=== PATIENT | female | born 1955 | race Hispanic/Latino ===

== ENCOUNTER 2019-01-29 20:55 | Emergency (ER) | payer MEDICARE, OTHER ==
[~2019-01-29] VITALS: Ht 162.6 cm; Wt 104.3 kg
[~2019-01-29 20:55] MED LIST: ATARAX PO; BENTYL20 MG PO; BYSTOLIC10 MG PO; CARAFATE1 G1 PO; COLESTIPOL HCL1 GM PO; CYMBALTA60 MG PO; DEXILANT60 MG PO; DONNATAL GT; EFFEXOR XR 75MG75 MG PO; ENBREL IM; HUMIRA; HUMIRA40 MG/0.1; HYDROCODON-ACE1 EAC9 PO; LASIX20 MG PO; NORCO 10-325 T1 EACH PO; PENTASA500 MG PO; PREMARIN1.25 MG PO; PROBIOTIC COMP1 EACH PO; PROTONIX40 M2 PO; SPIRONOLACTONE25 MG PO; SULFASALAZINE500 MG PO; TRIBENZOR 40-51 EACH PO; VITAMIN D PO; VITAMIN D250000 UNIT PO; Z ENJUVIA PO; Z.0.BENICAR40 MG PO; Z.0.CELEBREX50 MG PO; Z.0.FLEXERIL5 MG PO; Z.0.LORTAB 10-5001 E PO; Z.0.SAVELLA50 MG PO; Z.0.SILENOR6 MG PO; Z.0.SYNTHROID100 MCG PO; Z.0.TRIAMTERENE-HC1 PO; Z.1.COLESTIPOL HCL1 PO
--- OUTSIDE RECORDS SUMMARY | 2019-01-29 20:59 | XMS REPORT | Clinical Summary ---
Author Author [facility] Organization [facility] Address Unknown Phone Unavailable Care Team Providers Care Housekeeper Cleaning Cooking Name Role Phone Av Logan MD PCP Allergies Comments Active Allergy Reactions Severity Noted Date TOPICAL IODINE: Burned skin off Iodine And Iodide Other (See High 05/31/2016 Containing Products Comments) Medications End Date Status Medication Sig Dispensed Refills Start Date Active sucralfate (CARAFATE) 1 Take 1 g by 0 gram tablet mouth 3 (three) times a day. Active DULoxetine (CYMBALTA) 60 Take 60 mg by 5 MG capsule mouth 2 (two) 6 times a day. Active cyanocobalamin 1000 MCG Take 1,000 0 tablet mcg by mouth daily. Active folic acid (FOLVITE) 1 MG Take 2 mg by 3 tablet mouth daily. 7 Active gabapentin (NEURONTIN) Take 1,200 mg 0 600 mg tablet by mouth 2 (two) times a day. Morning and evening Active HYDROcodone-acetaminophen Take 1 tablet 0 (NORCO) 10-325 mg per by mouth tablet every 6 (six) hours as needed for moderate pain. Active celecoxib (CeleBREX) 100 Take one to 60 capsule 2 MG capsule two capsules 8 po BID prn joint pain Active colestipol (COLESTID) 1 Take 1 tablet 180 tablet 1 gram tablet (1 g total) 8 by mouth 2 (two) times a day. 10/31/2019 Active dicyclomine (BENTYL) 20 Take 1 tablet 360 tablet 3 mg tablet (20 mg total) 8 by mouth 4 (four) times a day. 03/03/2019 Active inFLIXimab (REMICADE) 100 INFUSE 1100MG 11 each 3 mg injection (10MG PER KG 9 ) OVER 2 HOURS EVERY 4 WEEKS. Active NORMAL SALINE FLUSH USE 10 mL 4 injection DIRECTED 9 Active amLODIPine (NORVASC) 5 mg Take 5 mg by 6 tablet mouth daily. 8 Active azilsartan Take by mouth 0 med-chlorthalidone daily. (EDARBYCLOR) 40-25 mg tablet Active clonIDINE (CATAPRES) 0.1 TAKE 1 TABLET 3 MG tablet BY MOUTH 8 EVERY 6 HOURS NEEDED FOR SBP >170 Active modafinil (PROVIGIL) 100 Take 100 mg 0 MG tablet by mouth daily. Active leflunomide (ARAVA) 20 MG Take 20 mg by 0 tablet mouth daily. Active pantoprazole (PROTONIX) Take 1 tablet 60 tablet 5 40 MG EC (40 mg total) 9 tabletIndications: by mouth 2 Gastroesophageal reflux (two) times a disease without day. esophagitis Active hydrocortisone Insert into 28.35 g 2 (ANUSOL-HC) 2.5 % rectal the rectum 2 9 creamIndications: (two) times a Hemorrhoids, unspecified day. hemorrhoid type 01/15/2019 Discontinued ovpojldnng-qkuiyhzqg-ylap Take 1 tablet 0 iazid (TRIBENZOR) 40-5-25 by mouth mg tablet daily. 02/17/2018 Discontinued ergocalciferol (VITAMIN Take 50,000 0 D2) 50,000 unit capsule Units by mouth once a week. Saturday02/17/2018 Discontinued methotrexate 2.5 MG Take 5 mg by 0 tablet mouth once a week. Saturday. 01/15/2019 Discontinued ranitidine (ZANTAC) 300 Take 300 mg 0 MG tablet by mouth nightly as needed for indigestion or heartburn. 01/15/2019 Discontinued inFLIXimab (REMICADE) 100 Infuse into a 0 mg injection venous catheter. Every 4 weeks 08/29/2018 Discontinued dexlansoprazole Take 120 mg 0 (DEXILANT) 60 mg capsule by mouth daily. 05/23/2018 Discontinued colestipol (COLESTID) 1 Take 1 tablet 180 tablet 1 gram tablet (1 g total) 7 by mouth 2 (two) times a day. 02/17/2018 Discontinued sod picosulf-mag Dispense 1 1 each 0 ox-citric ac (PREPOPIK) kit. Take as 7 10 mg-3.5 gram-12 gram directed. powder in packetIndications: Crohn's disease with complication, unspecified gastrointestinal tract location (HCC) 12/01/2018 Discontinued inFLIXimab (REMICADE) 100 Infuse 1100mg 11 vial 11 mg injection (10mg/kg) 8 over 2 hours every 4 weeks 10/16/2018 Discontinued dicyclomine (BENTYL) 10 Take 1 120 capsule 11 MG capsule capsule (10 8 mg total) by mouth 4 (four) times a day before meals and nightly. 01/15/2019 Discontinued METHOTREXATE/PF (RASUVO, Inject under 0 PF, SUBQ) the skin. 06/22/2018 Discontinued ergocalciferol (VITAMIN Take 2 24 capsule 0 D2) 50,000 unit capsules 8 capsuleIndications: (100,000 Vitamin D deficiency Units total) by mouth once a week for 12 doses. Saturday03/19/2018 zolpidem (AMBIEN) 10 mg Take 1 tablet 30 tablet 0 tabletIndications: (10 mg total) 8 Primary insomnia by mouth nightly as needed for sleep for up to 30 days. 09/08/2018 VITAMIN D2 50,000 unit TAKE 2 24 capsule 0 capsuleIndications: CAPSULES 8 Vitamin D deficiency (100,000 UNITS TOTAL) BY MOUTH ONCE A WEEK FOR 12 DOSES. Saturday01/15/2019 Discontinued DEXILANT 60 mg capsule TAKE 1 60 capsule 4 CAPSULE (60 8 MG TOTAL) BY MOUTH 2 (TWO) TIMES A DAY. (08/15) 01/15/2019 Discontinued dexlansoprazole Take 2 180 capsule 0 (DEXILANT) 60 mg capsule capsules (120 8 mg total) by mouth daily. 12/09/2018 ergocalciferol (VITAMIN Take 1 24 capsule 0 D2) 50,000 unit capsule 8 capsuleIndications: (50,000 Units Vitamin D deficiency total) by mouth once a week for 12 doses. Saturday10/31/2018 Discontinued dicyclomine (BENTYL) 20 Take 1 tablet 360 tablet 3 mg tablet (20 mg total) 8 by mouth 4 (four) times a day. 01/15/2019 Discontinued hyoscyamine sulfate Take one po 60 each 3 (SYMAX DUOTAB) 0.125 bid prn 8 mg-0.25 mg (0.375 mg) abdominal tablet,ext release pain multiphase Active Problems Problem Noted Date Morbid obesity with BMI of 40.0-44.9, adult 02/17/2018 Primary insomnia 02/17/2018 Vitamin D deficiency 02/17/2018 Dehydration 12/14/2017 Generalized abdominal pain 10/18/2017 Crohn's disease with complication 05/30/2017 Intestinal infection due to enteropathogenic E. coli 05/22/2017 Last Assessment & Plan: Symptoms improved. Finished course of antibiotics. Still have 3-5 semisolid to watery BM. Likely post infectious alternation of gut microbiota. Asked to eat yogurt and take OTC probiotics. Rheumatoid arthritis involving multiple sites 05/22/2017 Last Assessment & Plan: Followed by Hvac Engineering Technician, she is currently on weekly MTX. Symptoms controlled. Healthcare maintenance 05/22/2017 Last Assessment & Plan: We will check iron profile, Quantiferone gold test, ESR/CRP with next blood draw. She had B12, FA and Zinc level check by her PCP. Will obtain records. Crohn's colitis 05/01/2017 Last Assessment & Plan: CD diagnosed in ?[address] Childers. Her presentation at that time was abdominal pain and non bloody diarrhea. She had colonoscopy during that time and was told CD. She doesn't know which part of bowel is involved. She has no history of fistula formation or abdominal surgery. She was treated with Humira for 1 year and switched to Remicade about 12/2016, currently she is on every 8 week dose. Symptoms controlled currently. She is due for her next Remicade infusion on 04/29/2017. We will check trough level prior to next infusion. Will continue current dose every 8 weeks for now. She will need repeat colonoscopy to assess diseases activity once she is fully recovered from recent EPEC gastroenteritis. Lactic acidosis 04/30/2017 Abdominal pain, acute, generalized 04/30/2017 Spinal stenosis of lumbar region 06/01/2016 Calcific tendinitis of shoulder 11/27/2013 Encounters Care Team Description Date Type Specialty Valeria Guzmán PA Hemorrhoids, unspecified hemorrhoid type (Primary Dx) 01/28/2019 Orders Only Gastroenterology Valeria Guzmán PA Crohn's disease with other complication, unspecified gastrointestinal tract location (HCC); Encounter for therapeutic drug monitoring 01/15/2019 Lab Lab Valeria Guzmán PA Crohn's disease with other complication, unspecified gastrointestinal tract location (HCC) (Primary Dx); Diarrhea, unspecified type; Fatty liver; Gastroesophageal reflux disease without esophagitis; Anxiety and depression; Personal history of immunosuppressive therapy; Encounter for therapeutic drug monitoring; Rheumatoid arthritis involving multiple sites, unspecified rheumatoid factor presence (HCC); Other specified counseling 01/15/2019 Office Visit Gastroenterology Rita Munoz MD 01/01/2019 Refill Rita Yarbrough MD 12/01/2018 Refill GastroenterGénesis Faulkner MA 10/31/2018 Refill Gastroenterology Bev Henderson LVN 10/22/2018 Orders Only Gastroenterology Bev Henderson LVN 10/16/2018 Orders Only GastroenterRita Bauer MD 10/16/2018 Telephone Gastroenterology Yanet Jc MA Vitamin D deficiency 09/22/2018 Orders Only Internal Medicine Bev Henderson LVN 08/29/2018 Orders Only Rita Yarbrough MD 2018 Refill Gastroenterology Valeria Guzmán PA Abnormal serum level of alkaline phosphatase (Primary Dx) 07/22/2018 Orders Only Gastroenterology Bev Henderson LVN IBD (inflammatory bowel disease) (Primary Dx); Vitamin B 12 deficiency; Vitamin D deficiency; Iron deficiency anemia, unspecified iron deficiency anemia type 07/10/2018 Orders Only Gastroenterology Av Logan MD Vitamin D deficiency 06/22/2018 Refill Internal Medicine Rita Munoz MD Elevated alkaline phosphatase level 06/16/2018 Hospital Radiology Encounter Bev Henderson LVN 05/23/2018 Orders Only Gastroenterology Kerry Shah NP-C 05/09/2018 Refill Gastroenterology Génesis Avalos MA Elevated alkaline phosphatase level (Primary Dx) 04/16/2018 Orders Only Gastroenterology Génesis Avalos MA Crohn's disease with other complication, unspecified gastrointestinal tract location (Primary Dx); Fatty liver; Personal history of immunosupression therapy; Abnormal serum level of alkaline phosphatase; Vitamin D deficiency 02/19/2018 Orders Only Gastroenterology Bev Henderson, CULIN[employer] ARTS INSTRUCTOR 02/18/2018 Documentation Gastroenterology Av Logan MD Primary insomnia (Primary Dx); Vitamin D deficiency; Morbid obesity with BMI of 40.0-44.9, adult 02/17/2018 Office Visit Internal Medicine Bev Henderson LVN 02/06/2018 Orders Only Gastroenterology Bev Henderson LVN 01/28/2018 Documentation Gastroenterology after 01/28/2018 Immunizations Name Dates Previously Given Next Due FLUCELVAX QUAD PF (0.5mL 10/19/2017 syringe) Pneumococcal Conjugate 10/19/2017 13-Valent Family History Medical History Relation Name Comments Diabetes Brother Prostate cancer Brother Cancer Father No Known Problems Maternal Grandfather No Known Problems Maternal Grandmother Diabetes Mother Heart disease Mother No Known Problems Other No Known Problems Paternal Grandfather No Known Problems Paternal Grandmother No Known Problems Sister Relation Name Status Comments Brother Father (Age 88) Maternal Grandfather Maternal Grandmother Mother (Age 82) Other Paternal Grandfather Paternal Grandmother Sister Social History Date Tobacco Use Types Packs/Day Years Used Never Smoker Smokeless Tobacco: Never Used Alcohol Use Drinks/Week oz/Week Comments No Sex Assigned at Date Recorded Not on file Industry Job Start Date Occupation Not on file Not on file Not on file Travel End Travel History Travel Start No recent travel history available. Last Filed Vital Signs Time Taken Vital Sign Reading 01/15/2019 11:27 AM LUMP RECEIVER Blood Pressure 117/81 01/15/2019 11:27 AM LUMP RECEIVER Pulse 74 - Temperature - - Respiratory Rate - - Oxygen Saturation - - Inhaled Oxygen - Concentration 01/15/2019 11:27 AM LUMP RECEIVER Weight 109 kg (240 lb) 01/15/2019 11:27 AM LUMP RECEIVER Height 162.6 cm (5' 4") 01/15/2019 11:27 AM LUMP RECEIVER Body Mass Index 41.2 Plan of Treatment Health Maintenance Due Date Last Done Comments CERVICAL CANCER SCREENING 1975 BREAST CANCER SCREENING 2004 COLON CANCER SCREENING 2004 SHINGLES VACCINES (#1) 2004 INFLUENZA VACCINE 07/02/2018 10/19/2017 Implants Device Identifier Shelf Expiration Date Model / Serial / Lot Implanted Type Area Manufactur er 01/30/2020 [id number] / / [id number] Port Injctbl Smart Port Ct W/ Dtchd Implantabl N/A: N/A ANGIODYNAM Plyurthn Cath 8fr - [id number] [employer] Implanted: 05/02/2017 (Quantity not Ports or on file) Accessorie s 01/01/2020 [id number] / / [id number] Port Injctbl Smart Port Ct W/ Dtchd Implantabl N/A: N/A ANGIODYNAM Plyurthn Cath 8fr - [id number] [employer] Implanted: 08/01/2017 (Quantity not Ports or on file) Accessorie s Port Procedures Comments Procedure Name Priority Date/Time Associated Diagnosis SEDIMENTATION RATE Routine 01/22/2019 Crohn's disease with 12:03 PM LUMP RECEIVER other complication, unspecified gastrointestinal tract location (HCC) Encounter for therapeutic drug monitoring C-REACTIVE PROTEIN Routine 01/22/2019 Crohn's disease with 12:03 PM LUMP RECEIVER other complication, unspecified gastrointestinal tract location (HCC) Encounter for therapeutic drug monitoring COMPREHENSIVE METABOLIC Routine 01/22/2019 Crohn's disease with PANEL 12:03 PM LUMP RECEIVER other complication, unspecified gastrointestinal tract location (HCC) Encounter for therapeutic drug monitoring CBC WITH PLATELET AND Routine 01/22/2019 Crohn's disease with DIFFERENTIAL 12:03 PM LUMP RECEIVER other complication, unspecified gastrointestinal tract location (HCC) Encounter for therapeutic drug monitoring TB TB TEST, CELL IMMUNE Routine 07/21/2018 MEASURE 8:28 AM CDT TB GOLD QUANTIFERON Routine 07/21/2018 IBD (inflammatory bowel 8:28 AM CDT disease) Vitamin B 12 deficiency Vitamin D deficiency Iron deficiency anemia, unspecified iron deficiency anemia type FOLATE LEVEL Routine 07/21/2018 IBD (inflammatory bowel 8:22 AM CDT disease) Vitamin B 12 deficiency Vitamin D deficiency Iron deficiency anemia, unspecified iron deficiency anemia type VITAMIN B12 LEVEL Routine 07/21/2018 IBD (inflammatory bowel 8:22 AM CDT disease) Vitamin B 12 deficiency Vitamin D deficiency Iron deficiency anemia, unspecified iron deficiency anemia type VITAMIN D 25 HYDROXY Routine 07/21/2018 IBD (inflammatory bowel LEVEL 8:22 AM CDT disease) Vitamin B 12 deficiency Vitamin D deficiency Iron deficiency anemia, unspecified iron deficiency anemia type TOTAL IRON BINDING Routine 07/21/2018 IBD (inflammatory bowel CAPACITY 8:22 AM CDT disease) Vitamin B 12 deficiency Vitamin D deficiency Iron deficiency anemia, unspecified iron deficiency anemia type FERRITIN LEVEL Routine 07/21/2018 IBD (inflammatory bowel 8:22 AM CDT disease) Vitamin B 12 deficiency Vitamin D deficiency Iron deficiency anemia, unspecified iron deficiency anemia type C-REACTIVE PROTEIN Routine 07/21/2018 IBD (inflammatory bowel 8:22 AM CDT disease) Vitamin B 12 deficiency Vitamin D deficiency Iron deficiency anemia, unspecified iron deficiency anemia type SEDIMENTATION RATE Routine 07/21/2018 IBD (inflammatory bowel 8:22 AM CDT disease) Vitamin B 12 deficiency Vitamin D deficiency Iron deficiency anemia, unspecified iron deficiency anemia type COMPREHENSIVE METABOLIC Routine 07/21/2018 IBD (inflammatory bowel PANEL 8:22 AM CDT disease) Vitamin B 12 deficiency Vitamin D deficiency Iron deficiency anemia, unspecified iron deficiency anemia type CBC WITH PLATELET AND Routine 07/21/2018 IBD (inflammatory bowel DIFFERENTIAL 8:22 AM CDT disease) Vitamin B 12 deficiency Vitamin D deficiency Iron deficiency anemia, unspecified iron deficiency anemia type MRI CHOLANGIOGRAM W WO Routine 06/16/2018 Elevated alkaline CONTRAST 11:22 AM CDT phosphatase level POC CREATININE Routine 06/16/2018 10:34 AM CDT VITAMIN E (ALPHA AND Routine 03/26/2018 GAMMA TOCOPHEROL) 2:42 PM CDT ALKALINE PHOSPHATASE Routine 03/26/2018 Fatty liver ISOENZYMES 2:42 PM CDT Personal history of immunosupression therapy Abnormal serum level of alkaline phosphatase CBC WITH PLATELET AND Routine 03/26/2018 Crohn's disease with DIFFERENTIAL 2:42 PM CDT other complication, unspecified gastrointestinal tract location Fatty liver Personal history of immunosupression therapy GGT Routine 03/26/2018 Fatty liver 2:42 PM CDT Personal history of immunosupression therapy Abnormal serum level of alkaline phosphatase HEPATIC FUNCTION PANEL Routine 03/26/2018 Fatty liver 2:42 PM CDT Personal history of immunosupression therapy Abnormal serum level of alkaline phosphatase SEDIMENTATION RATE Routine 03/26/2018 Fatty liver 2:42 PM CDT Personal history of immunosupression therapy Abnormal serum level of alkaline phosphatase Crohn's disease with other complication, unspecified gastrointestinal tract location C-REACTIVE PROTEIN Routine 03/26/2018 Fatty liver 2:42 PM CDT Personal history of immunosupression therapy Abnormal serum level of alkaline phosphatase Crohn's disease with other complication, unspecified gastrointestinal tract location FERRITIN LEVEL Routine 03/26/2018 Fatty liver 2:42 PM CDT Personal history of immunosupression therapy TOTAL IRON BINDING Routine 03/26/2018 Fatty liver CAPACITY 2:42 PM CDT Personal history of immunosupression therapy VITAMIN B12 AND FOLATE Routine 03/26/2018 Fatty liver 2:42 PM CDT Personal history of immunosupression therapy VITAMIN D 25 HYDROXY Routine 03/26/2018 Fatty liver LEVEL 2:42 PM CDT Personal history of immunosupression therapy Vitamin D deficiency after 01/28/2018 Results * Sedimentation rate (01/22/2019 12:03 PM LUMP RECEIVER) Only the most recent of 3 results within the time period is included. Sedimentation rate 7 0 - 40 mm/hr [facility] Specimen Blood Narrative Performed At Performed at: - [facility] [place], [id number] Consulting Psychologist: Alexander Crowe MD, Phone:[phone] Performing Organization Address [facility] [place] Phone Number [facility] * CBC with platelet and differential (01/22/2019 12:03 PM LUMP RECEIVER) Only the most recent of 3 results within the time period is included. WBC 10.5 3.4 - 10.8 x10E3/uL [facility] RBC 4.07 3.77 - 5.28 x10E6/uL [facility] HGB 12.5 11.1 - 15.9 g/dL [facility] HCT 38.0 34.0 - 46.6 % [facility] MCV 93 79 - 97 fL [facility] MCH 30.7 26.6 - 33.0 pg [facility] MCHC 32.9 31.5 - 35.7 g/dL [facility] RDW 14.0 12.3 - 15.4 % [facility] Platelet count 293 150 - 379 x10E3/uL [facility] Neutrophils 58 Not Estab. % [facility] Lymphocytes 32 Not Estab. % [facility] Monocytes 7 Not Estab. % [facility] Eosinophils 1 Not Estab. % [facility] Basophils 1 Not Estab. % [facility] Neutrophils, absolute 6.2 1.4 - 7.0 x10E3/uL [facility] Lymphocytes, absolute 3.3 (H) 0.7 - 3.1 x10E3/uL [facility] Monocytes, absolute 0.7 0.1 - 0.9 x10E3/uL [facility] Eosinophils, absolute 0.2 0.0 - 0.4 x10E3/uL [facility] Basophils, absolute 0.1 0.0 - 0.2 x10E3/uL [facility] Immature granulocytes 1 Not Estab. % [facility] Immature grans (abs) 0.1 0.0 - 0.1 x10E3/uL [facility] Specimen Blood Narrative Performed At Performed at:01 - [id number] Consulting Psychologist: Alexander Crowe MD, Phone:[phone] Performing Organization Address [facility] [place] Phone Number [facility] * C-reactive protein (01/22/2019 12:03 PM LUMP RECEIVER) Only the most recent of 3 results within the time period is included. CRP 8.9 (H) 0.0 - 4.9 mg/L [facility] Specimen Blood Narrative Performed At Performed at: - [facility] [place], [id number] Consulting Psychologist: Alexadner Crowe MD, Phone:[phone] Performing Organization Address [facility] [place] Phone Number [facility] * Comprehensive metabolic panel (01/22/2019 12:03 PM LUMP RECEIVER) Only the most recent of 2 results within the time period is included. Glucose 122 (H) 65 - 99 mg/dL [facility] BUN, whole blood 20 8 - 27 mg/dL [facility] Creatinine 0.60 0.57 - 1.00 mg/dL [facility] EGFR Non-Afr. Moz[place]ican 97 >59 mL/min/1.73 [facility] EGFR 111 >59 mL/min/1.73 [facility] BUN/creatinine ratio 33 (H) 12 - 28 [facility] Sodium 144 134 - 144 mmol/L [facility] Potassium 3.6 3.5 - 5.2 mmol/L [facility] Chloride 103 96 - 106 mmol/L [facility] CO2 23 20 - 29 mmol/L [facility] Calcium 9.5 8.7 - 10.3 mg/dL [facility] Protein 6.8 6.0 - 8.5 g/dL [facility] Albumin, S 4.1 3.6 - 4.8 g/dL [facility] Globulin, total 2.7 1.5 - 4.5 g/dL [facility] Albumin/globulin ratio 1.5 1.2 - 2.2 [facility] Total bilirubin 0.2 0.0 - 1.2 mg/dL [facility] Alkaline phosphatase 142 (H) 39 - 117 IU/L [facility] AST 15 0 - 40 IU/L [facility] ALT 21 0 - 32 IU/L [facility] Specimen Blood Narrative Performed At Performed at: - [facility] [place], [id number] Consulting Psychologist: Alexander Crowe MD, Phone:[phone] Performing Organization Address [facility] [place] Phone Number [facility] * TB GOLD Quantiferon (07/21/2018 8:28 AM CDT) Quantiferon TB gold Incubated, specimen forwarded [facility] incubated to [place], [place] for completion of the assay. Specimen Blood Narrative Performed At Performed at: - [facility] [address] [place], [id number] Consulting Psychologist: Alexander Crowe MD, Phone:[phone] Performing Organization Address [facility] [place] Phone Number [facility] * TB QuantiFERON In Tube (07/21/2018 8:28 AM CDT) Quantiferon TB gold Negative Negative [facility] Quantiferon criteria Comment [facility] Comment: To be considered positive a specimen should have a TB Ag minus Nil value greater than or equal to 0.35 IU/mL and in addition the TB Ag minus Nil value must be greater than or equal to 25% of the Nil value. There may be insufficient information in these values to differentiate between some negative and some indeterminate test values. Quantiferon TB Ag value 0.09 IU/mL [facility] Quantiferon NIL value 0.07 IU/mL [facility] Quantiferon mitogen value >10.00 IU/mL [facility] Quantiferon TB Ag minus 0.02 IU/mL [facility] NIL value Interpretation Comment [facility] Comment: The QuantiFERON TB Gold (in Tube) assay is intended for use as an aid in the diagnosis of TB infection. Negative results suggest that there is no TB infection. In patients with high suspicion of exposure, a negative test should be repeated. A positive test indicates infection with Mycobacterium tuberculosis. Among individuals without tuberculosis infection, a positive test may be due to exposure to M. kansasii, M. szulgai or M. marinum. On the Internet, go to cdc.gov/tb for further details. Narrative Performed At Performed at: - [facility] [address] [place], [id number] Consulting Psychologist: Yoshi Paredes MD, Phone:[phone] Performing Organization Address [facility] [place] Phone Number [facility] * Total iron binding capacity (07/21/2018 8:22 AM CDT) Only the most recent of 2 results within the time period is included. Iron binding capacity 461 (H) 250 - 450 ug/dL [facility] Unsaturated iron binding 364 118 - 369 ug/dL [facility] capacity Iron level 97 27 - 139 ug/dL [facility] Iron saturation 21 15 - 55 % [facility] Specimen Blood Narrative Performed At Performed at: [facility] [address] [place], [place] [id number] Consulting Psychologist: Alexander Crowe MD, Phone:[phone] Performing Organization Address [facility] [place] Phone Number [facility] * Vitamin D 25 hydroxy level (07/21/2018 8:22 AM CDT) Only the most recent of 2 results within the time period is included. Vitamin D, 25-hydroxy 33.3 30.0 - 100.0 ng/mL [facility] Comment: Vitamin D deficiency has been defined by the [place] [employer] and an Endocrine Society practice guideline as a level of serum 25-OH vitamin D less than 20 ng/mL (1,2). The Endocrine Society went on to further define vitamin D insufficiency as a level between 21 and 29 ng/mL (2). 1. IOM ([place] [employer]). 2010. Dietary reference intakes for calcium and D. [place]: The National Academies Press. 2. Stacey MF, Angel[place], Carlin-Corbin DUONG, et al. Evaluation, treatment, and prevention of vitamin D deficiency: an Endocrine Society clinical practice guideline. JCEM. 2010; 96(7):1911-30. Specimen Blood Narrative Performed At Performed at: [id number] Consulting Psychologist: Alexander Crowe MD, Phone:[phone] Performing Organization Address [facility] [place] [facility] * Folate level (07/21/2018 8:22 AM CDT) Folate 14.4 >3.0 ng/mL [facility] Comment: A serum folate concentration of less than 3.1 ng/mL is considered to represent clinical deficiency. Specimen Blood Narrative Performed At Performed at: [facility] [place], [id number] Consulting Psychologist: Alexander Crowe MD, Phone:[phone] Performing Organization Address [facility] [place] Phone Number [facility] * Ferritin level (07/21/2018 8:22 AM CDT) Only the most recent of 2 results within the time period is included. Ferritin level 61 15 - 150 ng/mL [facility] Specimen Blood Narrative Performed At Performed at:01 - [facility] [address] [place], [id number] Consulting Psychologist: Alexander Crowe MD, Phone:[phone] Performing Organization Address [facility] [place] Phone Number [facility] * Vitamin B12 level (07/21/2018 8:22 AM CDT) Vitamin B12 476 232 - 1,245 pg/mL [facility] Specimen Blood Narrative Performed At Performed at:01 - [facility] [address] [place], [id number] Consulting Psychologist: Alexander Crowe MD, Phone:[phone] Performing Organization Address [facility] [place] Phone Number [facility] * MRI CHOLANGIOGRAM W WO CONTRAST (06/16/2018 11:22 AM CDT) Narrative Performed At [facility] Procedure:MRI CHOLANGIOGRAM W WO CONTRAST REFERRING PHYSICIAN:RITA MUNOZ HISTORY:R74.8 Abnormal levels of other serum enzymes, elevated alkaline [id number] EXAM: MRI ABDOMEN (MRCP) WITHOUT AND WITH CONTRAST DATE: 06/16/2018 10:37 AM. COMPARISON: None. TECHNIQUE: Multiplanar multisequence MRCP acquisition was performed prior to and following intravenous injection of 10 cc of Gadavist. 3D oblique coronal slabs centered on the bile ducts were reconstructed. FINDINGS: The exam is suboptimal due to motion artifacts. Gallbladder: Surgically absent.. Bile ducts: The common bile duct is dilated with smooth tapering the level of the ampulla measuring approximately 1 cm in diameter. There is no evidence of gallstone.. Liver:The liver is normal in caliber, contour and signal intensity. No enhancing masses are identified. There is no evidence of intrabiliary dilatation.. Spleen: Normal. Pancreas:The pancreas is normal in caliber and signal intensity. No surrounding inflammation is seen. No pancreatic duct dilatation is identified.. Adrenal Glands:Normal. Kidneys:Scattered right renal cysts are seen with the largest lower pole cyst measuring approximately 1.6 cm. No enhancing renal lesion is seen. Evidence of hydronephrosis.. GI tract: The image portion of GI tract is unremarkable. Nodes: No enlarged lymph nodes in the upper abdomen. Fluid: No free fluid in the upper abdomen. IMPRESSION: No MRCP evidence of choledocholithiasis. Mild to moderate dilatation of common bile duct, probably due to of cholecystectomy status. No MRI evidence of acute pancreatitis. Bosniak category 1 right renal cysts. Unremarkable exam otherwise. Procedure Note Interface, Radiology Results Incoming - 06/16/2018 11:44 AM CDT Procedure:MRI CHOLANGIOGRAM W WO CONTRAST REFERRING PHYSICIAN:RITA MUNOZ HISTORY: R74.8 Abnormal levels of other serum enzymes, elevated alkaline phosphatase R74.8 EXAM: MRI ABDOMEN (MRCP) WITHOUT AND WITH CONTRAST DATE: 06/16/2018 10:37 AM. COMPARISON: None. TECHNIQUE: Multiplanar multisequence MRCP acquisition was performed prior to and following intravenous injection of 10 cc of Gadavist. 3D oblique coronal slabs centered on the bile ducts were reconstructed. FINDINGS: The exam is suboptimal due to motion artifacts. Gallbladder: Surgically absent.. Bile ducts: The common bile duct is dilated with smooth tapering the level of the ampulla measuring approximately 1 cm in diameter. There is no evidence of gallstone.. Liver: The liver is normal in caliber, contour and signal intensity. No enhancing masses are identified. There is no evidence of intrabiliary dilatation.. Spleen: Normal. Pancreas: The pancreas is normal in caliber and signal intensity. No surrounding inflammation is seen. No pancreatic duct dilatation is identified.. Adrenal Glands: Normal. Kidneys: Scattered right renal cysts are seen with the largest lower pole cyst measuring approximately 1.6 cm. No enhancing renal lesion is seen. Evidence of hydronephrosis.. GI tract: The image portion of GI tract is unremarkable. Nodes: No enlarged lymph nodes in the upper abdomen. Fluid: No free fluid in the upper abdomen. IMPRESSION: No MRCP evidence of choledocholithiasis. Mild to moderate dilatation of common bile duct, probably due to of cholecystectomy status. No MRI evidence of acute pancreatitis. Bosniak category 1 right renal cysts. Unremarkable exam otherwise. Performing Organization Address City/State/Zipcode Phone Number [facility] [address] [place] [address] * POC creatinine (06/16/2018 10:34 AM CDT) POC creatinine 0.6 0.5 - 0.9 mg/dl [facility] [place] [facility]IC[facility] Specimen Blood Performing Organization Address City/[facility] Phone Number [facility] [place] [facility] [address] [place] [address] PATHOLOGY AND GENOMIC MEDICINE * Vitamin E (Alpha and Gamma Tocopherol) (03/26/2018 2:42 PM CDT) Vitamin E level 10.5 9.0 - 29.0 mg/L [facility] Vitamin E level 2.6 0.5 - 4.9 mg/L [facility] Comment: Reference intervals for alpha and gamma-tocopherol determined from National Health and Nutrition Examination Survey, 7137-7497. Individuals with alpha-tocopherol levels less than 5.0 mg/L are considered vitamin E deficient. This test was developed and its performance characteristics determined by [facility]. It has not been cleared or approved by the Food and Drug Administration. Narrative Performed At Performed at: [id number] Consulting Psychologist: Yoshi Paredes MD, Phone:[phone] Performing Organization Address [facility] [place] Number [facility] * Vitamin B12 and Folate (03/26/2018 2:42 PM CDT) Vitamin B12 602 232 - 1,245 pg/mL [facility] Folate >19.9 >3.0 ng/mL [facility] Comment: A serum folate concentration of less than 3.1 ng/mL is considered to represent clinical deficiency. Specimen Blood Narrative Performed At [facility] [address] [place], [id number] Consulting Psychologist: Alexander Crowe MD, Phone:[phone] Performing Organization Address [facility] [place] Number [facility] * Alkaline phosphatase isoenzymes (03/26/2018 2:42 PM CDT) Liver fraction: 44 18 - 85 % [facility] 02 Bone Fraction: 47 14 - 68 % [facility] 02 Intestinal frac.: 9 0 - 18 % [facility] 02 Specimen Blood Narrative Performed At Performed at: [id number] Consulting Psychologist: Yoshi Paredes MD, Phone:[phone] Performing Organization Address [facility] Phone Number [facility] * GGT (03/26/2018 2:42 PM CDT) GGT 32 0 - 60 IU/L [facility] Specimen Blood Narrative Performed At Performed at:01 - [facility] [address] [place], [id number] Consulting Psychologist: Alexander Crowe MD, Phone:[phone] Performing Organization Address City[facility] Phone Number [facility] * Hepatic function panel (03/26/2018 2:42 PM CDT) Protein 7.2 6.0 - 8.5 g/dL [facility] Albumin, S 4.4 3.6 - 4.8 g/dL [facility] Total bilirubin 0.3 0.0 - 1.2 mg/dL [facility] Bilirubin direct 0.10 0.00 - 0.40 mg/dL [facility] Alkaline phosphatase 145 (H) 39 - 117 IU/L [facility] AST 18 0 - 40 IU/L [facility] ALT 19 0 - 32 IU/L [facility] Specimen Blood Narrative Performed At Performed at:01 - [facility] [address] [place], [id number] Consulting Psychologist: Alexander Crowe MD, Phone:[phone] Performing Organization Address [place]/[facility] [place] Phone Number [facility] after 01/28/2018 Insurance Payer Benefit Subscriber ID Type Phone Address Plan / Group UHC MEDICARE UHC xxxxxxxxx HMO MEDICARE COMPLETE Advance Directives Patient has advance care planning documents, and code status on file. For more i nformation, please contact: [facility] [address] [place] [address] Date Inactivated Comments Code Status Date Activated 12/17/2017 4:19 PM Full Code 12/14/2017 11:37 PM Code Status decision reached by: Patient
[2019-01-29 21:24] LABS: BASOPHILS # (AUTO) 0.1 (0.0-0.1); BASOPHILS % 0.6 % (0.0-1.0); EOSINOPHILS # (AUTO) 0.1 (0.0-0.4); EOSINOPHILS % 0.6 % (0.0-6.0); HEMATOCRIT 36.9 % (34.2-44.1); HEMOGLOBIN 12.4 g/dL (12.0-16.0); LYMPHOCYTES # (AUTO) 2.9 (1.0-3.2); LYMPHOCYTES % 17.9 % (18.0-39.1); MEAN CORPUSCULAR HEMOGLOBIN 31.1 pg (28-32); MEAN CORPUSCULAR HGB CONC 33.6 g/dL (31-35); MEAN CORPUSCULAR VOLUME 92.5 fL (81-99); NEUTROPHILS # (AUTO) 11.9 (2.1-6.9); NEUTROPHILS % 74.2 % (38.7-80.0); PLATELET COUNT 312 x10e3/uL (140-360); RED BLOOD COUNT 3.99 x10e6/uL (3.6-5.1); RED CELL DISTRIBUTION WIDTH 13.6 % (11.7-14.4)
[2019-01-29 21:45] LABS: ALANINE AMINOTRANSFERASE 64 IU/L (0-55); ALBUMIN 3.6 g/dL (3.5-5.0); ALKALINE PHOSPHATASE 136 IU/L (40-150); ANION GAP 16.8 mmol/L (8-16); BLOOD UREA NITROGEN 22 mg/dL (7-26); BUN/CREATININE RATIO 28 (6-25); CARBON DIOXIDE 22 mmol/L (22-29); CHLORIDE 103 mmol/L (98-107); EST GLOMERULAR FILTRATION RATE > 60 ML/MIN (60-); GLUCOSE 119 mg/dL (74-118); POTASSIUM 3.8 mmol/L (3.5-5.1); SODIUM 138 mmol/L (136-145)
[2019-01-29] MEDS ORDERED: MODAFINIL200 MG (22:36)
[2019-01-29] MEDS ORDERED: DICYCLOMINE HCL20 MG (22:36)
[2019-01-29] MEDS ORDERED: GABAPENTIN600 MG (22:36)
[2019-01-29] MEDS ORDERED: REMICADE100 MG/VIA IV (22:36)
[2019-01-29] MEDS ORDERED: EDARBYCLOR 40-1 EAC1 (22:36)
[2019-01-29] MEDS ORDERED: TYLENOL # 31 EA (22:36)
[2019-01-29] MEDS ORDERED: CYMBALTA30 MG (22:36)
[2019-01-29] MEDS ORDERED: CLONIDINE HCL0.1 MG (22:36)
[2019-01-29] MEDS ORDERED: PANTOPRAZOLE SO40 MG (22:36)
[2019-01-29] MEDS ORDERED: MODAFINIL100 MG (22:36)
[2019-01-29] MEDS ORDERED: LEFLUNOMIDE20 MG (22:36)
--- NOTE | 2019-01-29 22:36 | NUR ---
UPDATED HOME MED LIST OBTAINED FROM FAMILY AND ENTERED INTO COMPUTER
--- NOTE | 2019-01-29 23:13 | NUR ---
received report from diogo noel
[2019-01-29] MEDS ORDERED: DIATRIZOATE MEGL/DIATRIZOA SOD 30 ML BTL PO ONE (23:52)
[2019-01-29] MEDS ORDERED: SODIUM CHLORIDE 0.9% 50ML 50 ML ONE (23:52)
[2019-01-29] MEDS ORDERED: IOPAMIDOL 370 MG/ML 200 ML INFUS..BTL INJ ONE (23:52)
--- NOTE | 2019-01-30 00:10 | NUR ---
iv in lacf infiltrated with ns, dc'd iv, restarted racf x 2 sticks with us guidance, tolerated well, drinking po contrast
--- NOTE | 2019-01-30 01:36 | Diagnostic Imaging Report ---
CT Abdomen And Pelvis with Intravenous Contrast INDICATION: Crohn's disease, diarrhea, weakness, abdominal pain ^abd pain ^[id number] ^[id number] TECHNIQUE: Thin collimation axial images obtained from the diaphragm to the level of the pubic symphysis following the uneventful administration of 100 cc of low osmolar, nonionic intravenous contrast. Oral contrast was also administered. Dose reduction techniques used: Automated exposure control, adjustment of the mAs and/or kVp according to patient size, standardized low-dose protocol, and/or iterative reconstruction technique. RADIATION DOSE: Total DLP: 827.5 mGy*cm Estimated effective dose: (DLP x 0.015 x size factor) mSv CTDIvol has been reviewed. It is below the limits set by the Radiation Protocol Committee (RPC). COMPARISON: Report of CT abdomen/pelvis 09/14/2012. CT abdomen/pelvis 07/17/2010 ABDOMEN FINDINGS: Lung Bases: Clear. The visualized portions of the mediastinum are normal.. Liver: Decreased attenuation and measures 17 cm in length. No evidence for mass. Gallbladder: Absent. No biliary ductal dilatation. Pancreas: Normal attenuation without mass or ductal dilatation. Spleen: Normal in size. No evidence of mass.. Adrenal Glands: No evidence for mass. Kidneys: Right: Normal enhancement. Lower pole cyst measures 1.8 cm. No hydronephrosis. Left: Normal enhancement. No soft tissue mass. No hydronephrosis. Lymph Nodes: No enlarged abdominal or retroperitoneal lymph nodes. Aorta: Normal in diameter with diffuse calcifications PELVIS FINDINGS: Bowel: Stomach: Postoperative changes of the GE junction suggestive of Denis fundoplication. This is stable. The stomach contains enteric contrast and is not dilated. No mural thickening or surrounding inflammation. Small Bowel: Contains enteric contrast. A centrally located small bowel loop measures 3 cm in diameter without surrounding inflammation or mural thickening. Distal to this, there is enteric contrast in normal caliber small bowel loops. The terminal ileum is normal in appearance. Large Bowel: Contains a small amount of enteric contrast in the cecum. No dilatation. Mild burden of diverticulosis coli. No associated inflammation. Appendix: Not visualized and may be absent or collapsed. Bladder: Well distended and is normal. The uterus is absent. There are no adnexal masses. Peritoneum/retroperitoneum: No free fluid or fluid collection. No fistulas are appreciated. Bones: Mild degenerative changes of the spine. No focal osseous lesions. Soft tissues: Fat-containing hernia in the linea alba to the left of midline above the umbilicus has an aperture of 1.6 cm. The hernia itself measures 6.2 cm in diameter. No fluid in the hernia sac. A 10 mm knuckle of the transverse colon lies near the hernia neck (sagittal image 74). No conclusive evidence of associated inflammation. IMPRESSION: 1. No evidence of bowel inflammation to suggest active Crohn's flare. 2. Mild nonspecific distention of central small bowel loops without dilatation or impediment of passage of contrast into the distal small bowel. No secondary signs of inflammation at this level. 3. Ventral abdominal wall hernia containing a knuckle of transverse colon without associated inflammation. 4. Diverticulosis coli. No evidence of diverticulitis. Nonvisualization of the appendix. 4. Steatosis and hepatomegaly. 5. Postoperative changes from hiatal hernia repair, cholecystectomy, and hysterectomy. Signed by: Dr. Olga Graham MD on 01/30/2019 1:32 AM
[2019-01-30] MEDS ORDERED: ZOFRAN4 MG SL (02:24)
[2019-01-30] MEDS ORDERED: FLAGYL500 MG PO (02:24)
[2019-01-30] MEDS ORDERED: CIPRO500 MG PO (02:24)
[2019-01-30] MEDS ORDERED: REGLAN10 MG PO (02:24)
== END 2019-01-30 03:02 | disposition home or self-care (01) ==
LOC: ER 20:55
DX: R19.7 Diarrhea, unspecified (principal); K50.00 Crohn's disease of small intestine without complications
CPT/HCPCS: 36415; 74177; 80053; 85025; 99283; Q9967

== ENCOUNTER 2019-02-21 12:15 | Emergency (ER) | payer MEDICARE ==
[~2019-02-21] VITALS: Ht 162.6 cm; Wt 104.3 kg
[~2019-02-21 12:15] MED LIST changes: +CIPRO500 MG PO; +CLONIDINE HCL0.1 MG; +CYMBALTA30 MG; +DICYCLOMINE HCL20 MG; +EDARBYCLOR 40-1 EAC1; +FLAGYL500 MG PO; +GABAPENTIN600 MG; +LEFLUNOMIDE20 MG; +MODAFINIL100 MG; +MODAFINIL200 MG; +PANTOPRAZOLE SO40 MG; +REGLAN10 MG PO; +REMICADE100 MG/VIA IV; +TYLENOL # 31 EA; +ZOFRAN4 MG SL
--- OUTSIDE RECORDS SUMMARY | 2019-02-21 12:19 | XMS REPORT | Clinical Summary ---
Author Author [facility] Organization [facility] Address Unknown Phone Unavailable Care Team Providers Care Children'S Tutor Name Role Phone Av Logan MD PCP [...] mg by 0 tablet mouth daily. Active hydrocortisone Insert into 28.35 g 2 (ANUSOL-HC) 2.5 % rectal the rectum 2 9 creamIndications: (two) times a Hemorrhoids, unspecified day. hemorrhoid type Active pantoprazole (PROTONIX) Take 1 tablet 180 tablet 3 40 MG EC (40 mg total) 9 tabletIndications: by mouth 2 Gastroesophageal reflux (two) times a disease without day. esophagitis Active HEParin, porcine, PF, 100 USE 10 Syringe 10 unit/mL syringe DIRECTED 9 01/15/2019 Discontinued wikrfexrpk-wmxbxyltx-uspv Take 1 tablet 0 iazid (TRIBENZOR) 40-5-25 by mouth mg tablet daily. 01/15/2019 Discontinued ranitidine (ZANTAC) 300 Take 300 [...] by mouth 2 (two) times a day. 12/01/2018 Discontinued inFLIXimab (REMICADE) 100 Infuse 1100mg [...] (0.375 mg) abdominal tablet,ext release pain multiphase 02/13/2019 Discontinued pantoprazole (PROTONIX) Take 1 tablet 60 tablet 5 40 MG EC (40 mg total) 9 tabletIndications: by mouth 2 Gastroesophageal reflux (two) times a disease without day. esophagitis Active Problems Problem Noted Date Morbid obesity [...] 05/22/2017 Last Assessment & Plan: Followed by Regional Environmental Manager, she is currently on weekly MTX. Symptoms [...] Encounters Care Team Description Date Type Specialty Francine Munoz MD 02/16/2019 Refill Gastroenterology Valeria Guzmán PA Gastroesophageal reflux disease without esophagitis 02/13/2019 Orders Only Gastroenterology Génesis Avalos MA Follow-up (Faxed over recent office visit notes and recent ER records to ) 02/06/2019 Documentation Gastroenterology Queenie Hawkins RN 01/30/2019 Telephone Gastroenterology Valeria Guzmán PA Hemorrhoids, unspecified hemorrhoid type [...] Other specified counseling 01/15/2019 Office Visit Gastroenterology Francine Munoz MD 01/01/2019 Refill GastroenterFrancine Bauer MD 12/01/2018 Refill Gastroenterology Génesis Avalos MA 10/31/2018 Refill Gastroenterology Bev Henderson LVN 10/22/2018 Orders Only Gastroenterology Bev Henderson LVN 10/16/2018 Orders Only Francine Yarbrough MD 10/16/2018 Telephone Gastroenterology Yanet Jc MA Vitamin D deficiency 09/22/2018 Orders Only Internal Medicine Bev Henderson LVN 08/29/2018 Orders Only Francine Yarbrough MD 2018 Refill Gastroenterology Valeria Guzmán PA Abnormal serum level of alkaline phosphatase (Primary Dx) 07/22/2018 Orders Only Gastroenterology Bev Henderson LVN IBD (inflammatory bowel disease) (Primary Dx); Vitamin B 12 deficiency; Vitamin D deficiency; Iron deficiency anemia, unspecified iron deficiency anemia type 07/10/2018 Orders Only GastroenterAv Chester MD Vitamin D deficiency 06/22/2018 Refill Internal Medicine Francine Munoz MD Elevated alkaline phosphatase level 06/16/2018 Hospital Radiology Encounter Bev Henderson LVN 05/23/2018 Orders Only Gastroenterology Kerry Shah NP-C 05/09/2018 Refill Gastroenterology Génesis Avalos MA Elevated alkaline phosphatase level (Primary Dx) 04/16/2018 Orders Only Gastroenterology after 02/20/2018 Immunizations Name Dates Previously Given Next Due [...] Taken Vital Sign Reading 01/15/2019 11:27 AM PANEL SAW OPERATOR Blood Pressure 117/81 01/15/2019 11:27 AM PANEL SAW OPERATOR Pulse 74 - Temperature - - Respiratory Rate - - Oxygen Saturation - - Inhaled Oxygen - Concentration 01/15/2019 11:27 AM PANEL SAW OPERATOR Weight 109 kg (240 lb) 01/15/2019 11:27 AM PANEL SAW OPERATOR Height 162.6 cm (5' 4") 01/15/2019 11:27 AM PANEL SAW OPERATOR Body Mass Index 41.2 Plan of Treatment Health Maintenance Due Date Last Done Comments CERVICAL CANCER SCREENING 1975 BREAST CANCER SCREENING 2004 COLON CANCER SCREENING 2004 SHINGLES VACCINES (#1) 2004 INFLUENZA VACCINE 07/02/2018 10/19/2017 Implants Device Identifier Shelf Expiration Date Model / Serial / Lot Implanted Type Area Manufactur er 01/30/2020 [id number] / / [id number] Port Injctbl Smart Port Ct W/ Dtchd Implantabl N/A: N/A ANGIODYNAM Plyurthn Cath 8fr - [id number] e [employer] Implanted: 05/02/2017 (Quantity not Ports or on file) Accessorie s 01/01/2020 [id number] / / [id number] Port Injctbl Smart Port Ct W/ Dtchd Implantabl N/A: N/A ANGIODYNAM Plyurthn Cath 8fr - [id number] [employer] Implanted: 08/01/2017 (Quantity not Ports or on file) Accessorie s Port Procedures Comments Procedure Name Priority Date/Time Associated Diagnosis SEDIMENTATION RATE Routine 01/22/2019 Crohn's disease with 12:03 PM PANEL SAW OPERATOR other complication, unspecified gastrointestinal tract location (HCC) Encounter for therapeutic drug monitoring C-REACTIVE PROTEIN Routine 01/22/2019 Crohn's disease with 12:03 PM PANEL SAW OPERATOR other complication, unspecified gastrointestinal tract location (HCC) Encounter for therapeutic drug monitoring COMPREHENSIVE METABOLIC Routine 01/22/2019 Crohn's disease with PANEL 12:03 PM PANEL SAW OPERATOR other complication, unspecified gastrointestinal tract location (HCC) Encounter for therapeutic drug monitoring CBC WITH PLATELET AND Routine 01/22/2019 Crohn's disease with DIFFERENTIAL 12:03 PM PANEL SAW OPERATOR other complication, unspecified gastrointestinal tract location (HCC) [...] of immunosupression therapy Vitamin D deficiency after 02/20/2018 Results * Sedimentation rate (01/22/2019 12:03 PM PANEL SAW OPERATOR) Only the most recent of 3 results within the time period is included. Sedimentation rate 7 0 - 40 mm/hr [facility] Specimen Blood Narrative Performed At Performed at:01 - [facility] [address] [place], [id number] Vice President Regulatory: Alexander Crowe MD, Phone:[phone] Performing Organization Address City/State/Zipcode Phone Number [facility] * CBC with platelet and differential (01/22/2019 12:03 PM PANEL SAW OPERATOR) Only the most recent of 3 results [...] Specimen Blood Narrative Performed At Performed at: [id number] Vice President Regulatory: Alexander Crowe MD, Phone:[phone] Performing Organization Address [facility] Phone Number [facility] * C-reactive protein (01/22/2019 12:03 PM PANEL SAW OPERATOR) Only the most recent of 3 results within the time period is included. CRP 8.9 (H) 0.0 - 4.9 mg/L [facility] Specimen Blood Narrative Performed At Performed at:[address] [place], [place] [id number] Vice President Regulatory: Alexander Crowe MD, Phone:[phone] Performing Organization Address [facility] Phone Number [facility] * Comprehensive metabolic panel (01/22/2019 12:03 PM PANEL SAW OPERATOR) Only the most recent of 2 results within the time period is included. Glucose 122 (H) 65 - 99 mg/dL [facility] BUN, whole blood 20 8 - 27 mg/dL [facility] Creatinine 0.60 0.57 - 1.00 mg/dL [facility] EGFR Non-Afr. [place] 97 >59 mL/min/1.73 [facility] EGFR 111 >59 [...] [facility] Specimen Blood Narrative Performed At Performed at:[address] [place], [place] [id number] Vice President Regulatory: Alexander Crowe MD, Phone:[phone] Performing Organization Address [facility] Phone Number [facility] * TB GOLD Quantiferon (07/21/2018 8:28 AM CDT) Quantiferon TB gold Incubated, specimen forwarded [facility] incubated to [place], [place] for completion of the assay. Specimen Blood Narrative Performed At Performed at:[address] [place], [place] [id number] Vice President Regulatory: Alexander Crowe MD, Phone:[phone] Performing Organization Address [facility] Phone Number [facility] * TB QuantiFERON In Tube (07/21/2018 8:28 AM CDT) Quantiferon TB gold Negative Negative [facility] 02 Quantiferon criteria Comment [facility] 02 Comment: To be considered positive a [...] values. Quantiferon TB Ag value 0.09 IU/mL [facility] 02 Quantiferon NIL value 0.07 IU/mL [facility] 02 Quantiferon mitogen value >10.00 IU/mL [facility] 02 Quantiferon TB Ag minus 0.02 IU/mL [facility] 02 NIL value Interpretation Comment [facility] 02 Comment: The QuantiFERON TB Gold (in [...] further details. Narrative Performed At Performed at: [facility] [address] [place], [id number] Vice President Regulatory: Yoshi Paredes MD, Phone:[phone] Performing Organization Address [facility] Phone Number [facility] 02 * Total iron binding capacity (07/21/2018 [...] Specimen Blood Narrative Performed At [facility]: [facility] [address], [id number] Vice President Regulatory: Alexander Crowe MD, Phone:[phone] Performing Organization Address City/[facility] Phone Number [facility] * Vitamin D 25 hydroxy level (07/21/2018 8:22 AM CDT) Only the most recent of 2 results within the time period is included. Vitamin D, 25-hydroxy 33.3 30.0 - 100.0 ng/mL [facility] Comment: Vitamin D deficiency has been defined by the Freedom of Medicine and an Endocrine Society practice guideline as a level of serum 25-OH vitamin D less than 20 ng/mL (1,2). The Endocrine Society went on to further define vitamin D insufficiency as a level between 21 and 29 ng/mL (2). 1. IOM (Freedom of Medicine). 2010. Dietary reference intakes for calcium and D. [place]: The National Academies Press. 2. Stacey MF, Angelina [place], Sudheer DUONG, et al. Evaluation, treatment, and prevention of vitamin D deficiency: an Endocrine Society clinical practice guideline. JCEM. 2010; 96(7):1911-30. Specimen Blood Narrative Performed At Performed at: [id number] Vice President Regulatory: Alexander Crowe MD, Phone:[phone] Performing Organization Address [facility] Phone Number [facility] * Folate level (07/21/2018 8:22 AM CDT) Folate 14.4 >3.0 ng/mL [facility] Comment: A serum folate concentration of less than 3.1 ng/mL is considered to represent clinical deficiency. Specimen Blood Narrative Performed At Performed at: [id number] Vice President Regulatory: Alexander Crowe MD, Phone:[phone] Performing Organization Address [facility] Phone Number [facility] * Ferritin level (07/21/2018 8:22 AM CDT) Only the most recent of 2 results within the time period is included. Ferritin level 61 15 - 150 ng/mL [facility] Specimen Blood Narrative Performed At Performed at:[facility], [id number] Vice President Regulatory: Alexander Crowe MD, Phone:[phone] Performing Organization Address [facility] Phone Number [facility] * Vitamin B12 level (07/21/2018 8:22 AM CDT) Vitamin B12 476 232 - 1,245 pg/mL [facility] Specimen Blood Narrative Performed At Performed at: [facility] [address] [facility], [id number] Vice President Regulatory: Alexander Crowe MD, Phone:[phone] Performing Organization Address City/State/Zipcode Phone Number [facility] * MRI CHOLANGIOGRAM W WO CONTRAST (06/16/2018 11:22 AM CDT) Narrative Performed At [facility] Procedure:MRI CHOLANGIOGRAM W WO CONTRAST REFERRING PHYSICIAN:FRANCINE MUNOZ HISTORY:R74.8 Abnormal levels of other serum enzymes, elevated alkaline [id number] EXAM: MRI ABDOMEN ([facility]) WITHOUT AND WITH [...] CDT Procedure:MRI CHOLANGIOGRAM W WO CONTRAST REFERRING PHYSICIAN:FRANCINE MUNOZ HISTORY: R74.8 Abnormal levels of other [...] otherwise. Performing Organization Address City/State/Zipcode Phone Number [facility] [address] [place] [address] * POC creatinine (06/16/2018 10:34 AM CDT) POC creatinine 0.6 0.5 - 0.9 mg/dl [facility] [place] [facility]OLOGY AND GENOMIC MEDICINE Specimen Blood Performing Organization Address City/State/Zipcode Phone Number [facility] [address] [place] [address]. [place] [address] PATHOLOGY AND GENOMIC MEDICINE * Vitamin E (Alpha and Gamma Tocopherol) (03/26/2018 2:42 PM CDT) Vitamin E level 10.5 9.0 - 29.0 mg/L [facility] 02 Vitamin E level 2.6 0.5 - 4.9 mg/L [facility] 02 Comment: Reference intervals for alpha and gamma-tocopherol determined from National Health and Nutrition Examination Survey, 3359-6892. Individuals with alpha-tocopherol levels less than 5.0 mg/L are considered vitamin E deficient. This test was developed and its performance characteristics determined by [facility]. It has not been cleared or approved by the Food and Drug Administration. Narrative Performed At Performed at: [id number] Vice President Regulatory: Yoshi Paredes MD, Phone:[phone] Performing Organization Address [facility] Phone Number [facility] 02 * Vitamin B12 and Folate (03/26/2018 2:42 PM CDT) Vitamin B12 602 232 - 1,245 pg/mL [facility] Folate >19.9 >3.0 ng/mL [facility] Comment: A serum folate concentration of less than 3.1 ng/mL is considered to represent clinical deficiency. Specimen Blood Narrative Performed At Performed at: [id number] Vice President Regulatory: Alexander Crowe MD, Phone:[phone] Performing Organization Address [facility] Phone Number [facility] * Alkaline phosphatase isoenzymes (03/26/2018 2:42 PM CDT) Liver fraction: 44 18 - 85 % [facility] 02 Bone Fraction: 47 14 - 68 % [facility] 02 Intestinal frac.: 9 0 - 18 % [facility] 02 Specimen Blood Narrative Performed At Performed at: [id number] Vice President Regulatory: Yoshi Paredes MD, Phone:[phone] Performing Organization Address [facility] Phone Number [facility] 02 * GGT (03/26/2018 2:42 PM CDT) GGT 32 0 - 60 IU/L [facility] Specimen Blood Narrative Performed At Performed at: [id number] Vice President Regulatory: Alexander Crowe MD, Phone:[phone] Performing Organization Address City/State/Zipcode Phone Number [facility] * Hepatic function panel [...] Narrative Performed At Performed at:01 - [facility] [address], [id number] Vice President Regulatory: Alexander Crowe MD, Phone:[phone] Performing Organization Address City/State/Zipcode Phone Number [facility] after 02/20/2018 Insurance Payer Benefit Subscriber ID Type Phone Address Plan / Group UHC MEDICARE UHC xxxxxxxxx O MEDICARE HMO/PPO Advance Directives Patient has advance care planning documents, and code status on file. For more i nformation, please contact: [facility] [address] [place] [address] Date Inactivated Comments Code Status Date Activated 12/17/2017 4:19 PM Full Code 12/14/2017 11:37 PM Code Status decision reached by: Patient
--- OUTSIDE RECORDS SUMMARY | 2019-02-21 12:19 | XMS REPORT ---
Author [facility] Address Unknown Phone Unavailable Care Team Providers Care Armature Tester Name Role Phone Blanca WALTON Unavailable Unavailable Problems This patient has no known problems. Allergies, Adverse Reactions, Alerts This patient has no known allergies or adverse reactions. Medications This patient has no known medications. Results Test Description Test Time Test Comments Text Results Atomic Results Result Comments CT ABDOMEN/PELVIS W 2019-01-30 01:21:00 [place] [id number] [place] [id number] Patient Name: LEONEL GRAHAM MR #: [id number] : 1955 Age/Sex: 63/F Req #: [id number] [facility] Physician: Ordered by: NEDA WALTON MD Report #: [id number] Location: ER Room/Bed: Procedure: [id number] CT/CT ABDOMEN/PELVIS W Exam Date: 01/30/19 Exam Time: 0103 REPORT STATUS: Signed CT Abdomen And Pelvis with Intravenous Contrast INDICATION: Crohn's disease, diarrhea, weakness, abdominal pain abd pain [id number] TECHNIQUE: Thin collimation axial images obtained from the diaphragm to the level of the pubic symphysis following the uneventful administration of 100 cc of low osmolar, nonionic intravenous contrast. Oral contrast was also administered. Dose reduction techniques used: Automated exposure control, adjustment of the mAs and/or kVp according to patient size, standardized low-dose protocol, and/or iterative reconstruction technique. RADIATION DOSE: Total DLP: 827.5 mGy*cm Estimated effective dose: (DLP x 0.015 x size factor) mSv CTDIvol has been reviewed. It is below the limits set by the Radiation Protocol Committee (RPC). COMPARISON: Report of CT abdomen/pelvis 09/14/2012. CT abdomen/pelvis 07/17/2010 ABDOMEN FINDINGS: Lung Bases: Clear. The visualized portions of the mediastinum are normal.. Liver: Decreased attenuation and measures 17 cm in length. No evidence for mass. Gallbladder: Absent. No biliary ductal dilatation. Pancreas: Normal attenuation without mass or ductal dilatation. Spleen: Normal in size. No evidence of mass.. Adrenal Glands: No evidence for mass. Kidneys: Right: Normal enhancement. Lower pole cyst measures 1.8 cm. No hydronephrosis. Left: Normal enhancement. No soft tissue mass. No hydronephrosis. Lymph Nodes: No enlarged abdominal or retroperitoneal lymph nodes. Aorta: Normal in diameter with diffuse calcifications PELVIS FINDINGS: Bowel: Stomach: Postoperative changes of the GE junction suggestive of Denis fundoplication. This is stable. The stomach contains enteric contrast and is not dilated. No mural thickening or surrounding inflammation. Small Bowel: Contains enteric contrast. A centrally located small bowel loop measures 3 cm in diameter without surrounding inflammation or mural thickening. Distal to this, there is enteric contrast in normal caliber small bowel loops. The terminal ileum is normal in appearance. Large Bowel: Contains a small amount of enteric contrast in the cecum. No dil atation. Mild burden of diverticulosis coli. No associated inflammation. Appendix: Not visualized and may be absent or collapsed. Bladder: Well distended and is normal. The uterus is absent. There are no adnexal masses. Peritoneum/retroperitoneum: No free fluid or fluid collection. No fistulas are appreciated. Bones: Mild degenerative changes of the spine. No focal osseous lesions. Soft tissues: Fat-containing hernia in the linea alba to the left of midline above the umbilicus has an aperture of 1.6 cm. The hernia itself measures 6.2 cm in diameter. No fluid in the hernia sac. A 10 mm knuckle of the transverse colon lies near the hernia neck (sagittal image 74). No conclusive evidence of associated inflammation. IMPRESSION: 1. No evidence of bowel inflammation to suggest active Crohn's flare. 2. Mild nonspecific distention of central small bowel loops without dilatation or impediment of passage of contrast into the distal small bowel. No secondary signs of inflammation at this level. 3. Ventral abdominal wall hernia containing a knuckle of transverse colon without associated inflammation. 4. Diverticulosis coli. No evidence of diverticulitis. Nonvisualization of the appendix. 4. Steatosis and hepatomegaly. 5. Postoperative changes from hiatal hernia repair, cholecystectomy, and hysterectomy. Signed by: Dr. Olga Graham MD on 01/30/2019 1:32 AM Dictated By: OLGA GRAHAM MD 1 Transcribed By: MOUNA on 01/30/19131 COPY TO: NEDA WALTON MD
--- NOTE | 2019-02-21 13:26 | NUR ---
Jorge tolliver in [facility] - 02/21/19 at 1339 by HEATHER PATIENT TO ROOM 10
[2019-02-21] MEDS ORDERED: VITAMIN D1000 UNI1 BLADIN (13:27)
[2019-02-21] MEDS ORDERED: SULFASALAZINE500 MG PO (13:27)
[2019-02-21] MEDS ORDERED: EDARBYCLOR 40-1 EAC1 PO (13:27)
--- NOTE | 2019-02-21 13:39 | Diagnostic Imaging Report ---
Examination: CT BRAIN WITHOUT CONTRAST History:Headache. Loss of vision. Loss of consciousness. Comparison studies:None Technique: Axial images were obtained from the skull base to the vertex. Coronal and sagittal images reconstructed from the axial data. Dose modulation, iterative reconstruction, and/or weight based adjustment of the mA/kV was utilized to reduce the radiation dose to as low as reasonably achievable. Intravenous contrast: None Findings: Scalp: No abnormalities. Bones: No fractures, blastic or lytic lesions. Brain sulci: Appropriate for age. Ventricles: Normal in size and configuration. No hydrocephalus. Extra-axial space: No abnormalities. Parenchyma: No abnormal densities. No masses, hemorrhage, or acute or chronic cortical based vascular insults.. Sellar/suprasellar region: No abnormalities. Craniocervical junction: Patent foramen magnum. No Chiari one malformation. Incidental findings: Atherosclerotic calcification of the cavernous and supraclinoid internal carotid arteries. Impression: No intracranial abnormalities. Signed by: Dr. Sheela Arroyo M.D. on 02/21/2019 1:36 PM
--- NOTE | 2019-02-21 13:42 | Diagnostic Imaging Report ---
EXAMINATION: CHEST SINGLE (PORTABLE) COMPARISON: Chest x-ray report 09/21/2010 INDICATION: ^acute midback pain, dizziness ^[id number] ^1245 ^Y DISCUSSION: Frontal view of the chest obtained at 1244 hours. HEART AND MEDIASTINUM: The heart is top normal in size LINES: MediPort catheter terminates in the SVC LUNGS: The lungs are well inflated. No pneumonia or pulmonary edema. PLEURA: No pleural effusion or pneumothorax. BONES AND SOFT TISSUES: Visualized hardware in the lower cervical spine is intact. The soft tissues are normal. IMPRESSION: No acute cardiopulmonary process. Signed by: Dr. Olga Graham MD on 02/21/2019 1:39 PM
[2019-02-21 14:22] LABS: BASOPHILS # (AUTO) 0.1 (0.0-0.1); BASOPHILS % 0.4 % (0.0-1.0); EOSINOPHILS # (AUTO) 0.1 (0.0-0.4); EOSINOPHILS % 0.7 % (0.0-6.0); HEMATOCRIT 37.5 % (34.2-44.1); HEMOGLOBIN 12.2 g/dL (12.0-16.0); LYMPHOCYTES # (AUTO) 2.7 (1.0-3.2); LYMPHOCYTES % 14.8 % (18.0-39.1); MEAN CORPUSCULAR HGB CONC 32.5 g/dL (31-35); MEAN CORPUSCULAR VOLUME 95.2 fL (81-99); MONOCYTES # (AUTO) 1.4 (0.2-0.8); MONOCYTES % 7.5 % (4.4-11.3); NEUTROPHILS # (AUTO) 13.8 (2.1-6.9); NEUTROPHILS % 75.1 % (38.7-80.0); PLATELET COUNT 299 x10e3/uL (140-360); RED BLOOD COUNT 3.94 x10e6/uL (3.6-5.1); RED CELL DISTRIBUTION WIDTH 14.1 % (11.7-14.4)
[2019-02-21 14:43] LABS: INR 0.91; PROTHROMBIN TIME 12.7 seconds (11.9-14.5)
[2019-02-21 14:44] LABS: PARTIAL THROMBOPLASTIN TIME 30.1 seconds (23.8-35.5)
[2019-02-21 14:52] LABS: ALBUMIN 3.6 g/dL (3.5-5.0); ANION GAP 14.4 mmol/L (8-16); CREATININE, SERUM 1.11 mg/dL (0.57-1.11); POTASSIUM 3.4 mmol/L (3.5-5.1)
[2019-02-21 14:59] LABS: CREATINE KINASE MB 4.1 ng/mL (0-5.0)
[2019-02-21 16:14] LABS: AMPHETAMINES SCREEN,URINE NEGATIVE (NEGATIVE); BENZODIAZEPINES SCREEN,URINE NEGATIVE (NEGATIVE); PHENCYCLIDINE SCREEN,URINE NEGATIVE (NEGATIVE)
[2019-02-21 16:20] LABS: CLARITY,URINE CLOUDY (CLEAR); COLOR,URINE YELLOW (YELLOW); KETONES,URINE NEGATIVE (NEGATIVE); LEUKOCYTE ESTERASE ,URINE NEGATIVE (NEGATIVE); NITRITE,URINE NEGATIVE (NEGATIVE); PROTEIN,URINE DIPSTICK 2+ (NEGATIVE)
[2019-02-21 16:21] LABS: AMORPHOUS SEDIMENT,URINE MANY (FEW); BACTERIA,URINE MODERATE /HPF; BILIRUBIN,URINE NEGATIVE (NEGATIVE); EPITHELIAL CELLS,URINE MODERATE /LPF; URINE UROBILINOGEN 0.2 mg/dL (0.2 - 1)
--- NOTE | 2019-02-21 18:13 | NUR ---
PATIENT ATE ENTIRE MEAL TRAY
--- NOTE | 2019-02-21 18:17 | NUR ---
PATIENT WAS ABLE TO AMBULATE TO BATHROOM WITH MINIMAL ASSIST. C/O OF SLIGHT LIGHT HEADEDNESS
[2019-02-21] MEDS ORDERED: MACRODANTIN100 MG PO (18:23)
== END 2019-02-21 19:04 | disposition home or self-care (01) ==
LOC: ER 12:15
DX: R55 Syncope and collapse (principal); R53.1 Weakness; R11.0 Nausea; R51 Headache; N30.90 Cystitis, unspecified without hematuria; I10 Essential (primary) hypertension; I25.10 Atherosclerotic heart disease of native coronary artery without angina pectoris; M79.7 Fibromyalgia; M54.9 Dorsalgia, unspecified; G89.29 Other chronic pain
CPT/HCPCS: 36415; 70450; 71045; 80053; 80307; 81001; 82550; 82553; 83735; 83880; 84484; 85025; 85610; 85730; 93005; 99284